=== PATIENT | male | born 1985 | race Caucasian/White ===

== ENCOUNTER 2019-11-27 11:55 | Emergency (ER) | payer BC ==
[~2019-11-27] VITALS: Ht 177.8 cm; Wt 95.3 kg
[~2019-11-27 11:55] MED LIST: AMOXICILLIN500 MG PO; ANAPROX DS550 MG PO; ASPI-COR81 M1 PO; ASPIRIN FOR CHI81 MG PO; ASPIRIN81 M1 PO; ATIVAN1 MG PO; AZOR PO; CATAFLAM50 MG PO; CIPRO500 MG PO; CIPROFLOXACIN500 MG PO; CLARITIN10 MG PO; DAYPRO600 M1 PO; Ecotrin325 MG PO; FLAGYL500 MG PO; FLEXERIL5 MG PO; HYDROCODONE BIT1 T11 PO; MOTRIN800 MG PO; MULTIPLE VITAMI1 TA5 PO; NKHM; PEPCID20 MG PO; PREDNISONE20 MG PO; PROVENTIL0.09 MG/AC IH; ROBAXIN750 MG PO; TRAMADOL HCL50 MG PO; ZANTAC150 MG PO; ZITHROMAX Z PA250 MG PO
[2019-11-27] MEDS ORDERED: AMOXICILLIN500 M2 PO (12:38)
== END 2019-11-27 12:48 | disposition home or self-care (01) ==
LOC: ED 11:55
DX: K04.7 Periapical abscess without sinus (principal); I10 Essential (primary) hypertension; E78.5 Hyperlipidemia, unspecified; F17.200 Nicotine dependence, unspecified, uncomplicated; Z79.82 Long term (current) use of aspirin

== ENCOUNTER 2021-01-14 13:33 | Emergency (ER) | payer BC ==
[~2021-01-14] VITALS: Ht 177.8 cm; Wt 99.8 kg
[~2021-01-14 13:33] MED LIST changes: +AMOXICILLIN500 M2 PO
[2021-01-14] MEDS ORDERED: CEPHALEXIN500 M1 PO ×2 (15:15)
== END 2021-01-14 15:13 | disposition home or self-care (01) ==
LOC: ED 13:33
DX: L04.0 Acute lymphadenitis of face, head and neck (principal); Z79.82 Long term (current) use of aspirin; Z88.1 Allergy status to other antibiotic agents

== ENCOUNTER 2023-04-28 09:57 | Emergency (ER) | payer SELFPAY ==
[~2023-04-28] VITALS: Ht 177.8 cm; Wt 93.0 kg
[~2023-04-28 09:57] MED LIST changes: +CEPHALEXIN500 M1 PO
[2023-04-28] MEDS ORDERED: TAMIFLU 75MG CA75 MG PO (11:12)
== END 2023-04-28 11:30 | disposition home or self-care (01) ==
LOC: ED 09:57
DX: J10.1 Influenza due to other identified influenza virus with other respiratory manifestations (principal); R51.9 Headache, unspecified; I10 Essential (primary) hypertension; E78.5 Hyperlipidemia, unspecified; Z88.8 Allergy status to other drugs, medicaments and biological substances; Z20.822 Contact with and (suspected) exposure to COVID-19